=== PATIENT | male | born 1970 | race Caucasian/White ===

== ENCOUNTER 2022-01-11 15:02 | Emergency (ER) | payer SELFPAY ==
[2022-01-11 15:04] VITALS: BP 161/89; PULSE 105; RESP 18; TEMP 36.9; O2SAT 97; BMI 23.4
[2022-01-11] MEDS: MECLIZINE HCL 12.5 MG TABLET 50 MG PO (15:44)
[2022-01-11] MEDS: SODIUM CHLORIDE 0.9% 1,000 ML 1000 ML IV (15:45)
[2022-01-11 15:48] LABS: Add Manual Diff / Slide Review NO; Basophils Absolute Auto 0 /uL (0-100); Basophils Percent Auto 0.7 % (0-2); Eosinophils Absolute Auto 0 /uL (0-450); Eosinophils Percent Auto 0.2 % (2-4); Hematocrit 39.8 % (41-53); Hemoglobin 13.7 g/dL (13.5-17.5); Lymphocytes Absolute Auto 300 /uL (1100-4500); Lymphocytes Percent Auto 7.3 % (25-40); Mean Corpuscular HGB Conc 34.5 % (30-36); Mean Corpuscular Volume 98.4 fL (80-100); Monocytes Absolute Auto 300 /uL (0-900); Monocytes Percent Auto 7.1 % (3-14); Neutrophils Absolute Auto 4000 /uL (1500-7000); Neutrophils Percent Auto 84.7 % (50-75); Platelet Count 97 X10^3/uL (150-400); Red Blood Cell Count 4.04 X10^6/uL (4.5-5.9); White Blood Cell Count 4.7 X10^3/uL (4.5-11.0)
[2022-01-11 15:59] LABS: Alanine Aminotransferase 151 IU/L (<50); Albumin 3.7 g/dL (3.5-5.0); Albumin Globulin Ratio 1.2 (1.0-2.8); Alkaline Phosphatase 109 U/L (38-126); Aspartate Aminotransferase 263 IU/L (17-59); Bilirubin Total 0.6 mg/dL (0.2-1.3); Blood Urea Nitrogen 9 mg/dL (9-20); Calcium 7.1 mg/dL (8.4-10.2); Carbon Dioxide 20 mmol/L (22-32); Chloride 111 mmol/L (98-107); Creatine Kinase 92 U/L (55-170); Estimated Glomerular Filt Rate > 60 mL/min (>60); Glucose 102 mg/dL (70-100); HEMOLYSIS < 15 (0-50); Lipase 41 U/L (23-300); Magnesium 1.7 mg/dL (1.6-2.3); Potassium 3.2 mmol/L (3.4-5.1); Sodium 140 mmol/L (137-145); Total Protein 6.7 g/dL (6.3-8.2)
[2022-01-11 16:11] LABS: Troponin I < 0.012 ng/mL (0.01-0.034)
[2022-01-11 16:18] LABS: COVID19 -Nasal RAPID Negative (Negative)
--- NOTE | 2022-01-11 16:55 | ED_ITS ---
HPI - Dizziness <APPLE Lewis - Last Filed: 01/11/22 18:38> General Chief Complaint: Dizziness Stated Complaint: Vertigo Time Seen by Provider: 01/11/22 16:54 Source: patient and EMS Mode of arrival: EMS History of Present Illness HPI Narrative: This is a 51-year-old male presents to the emergency department complaining acute onset of dizziness this morning, nausea and vomiting associated with his dizziness, feeling poorly, and generalized bilateral ear pain associated with his seasonal allergies. Patient denies any fever, he states that he drinks 1-2 beers every other day, states that his stools have been firm, last bowel movement was last night, states he has had a cough for approximately 2 months, is COVID vaccinated x2, denies a history of any of the symptoms in the past. States that he had of fatty meal last night but otherwise has not had any significant changes. He denies any substance use, states he is a current everyday smoker, occasional marijuana user, states that he uses alcohol only a few times a week. He also endorses that he moved in with his parents, he has had a diet change recently, denies any abdominal surgeries, denies any abdominal pain, back pain, weakness, or any other symptom. He denies taking any vitamins. Related Data Previous Rx's Medication Instructions Recorded fluticasone furoate 27.5 1 spray INTRANASAL BID #5.9 ml 01/11/22 mcg/actuation nasal spray,suspension meclizine 50 mg tablet 50 mg PO DAILY PRN #20 tab 01/11/22 multivitamin 1 tab PO QAM #30 tab 01/11/22 ondansetron 4 mg disintegrating 4 mg PO Q8H #10 tab 01/11/22 tablet Allergies Allergy/AdvReac Type Severity Reaction Status Date / Time No Known Drug Allergies Allergy Verified 01/11/22 15:31 Review of Systems <APPLE Lewis - Last Filed: 01/11/22 18:38> Review of Systems Narrative: General: denies fever, chills, malaise, sweats, fatigue Head/Neck: denies headache, neck pain, dizziness Eyes: denies visual changes, eye pain Cardio: denies chest pain, palpitations, edema Respiratory: denies dyspnea, cough, orthopnea GI: denies abdominal pain, endorses nausea and vomiting today, denies any diarrhea : denies dysuria, hematuria, urinary retention, frequency or incontinence MSK: denies joint pain, muscle weakness Skin: denies rash, itching, skin lesions or other Neuro: denies numbness, tingling Patient History <APPLE Lewis - Last Filed: 01/11/22 18:38> Social History Smoking Status: Current every day smoker Smoking Status: Current every day smoker alcohol intake frequency: a few times a week Substance Use Type: marijuana Exam <APPLE Lewis - Last Filed: 01/11/22 18:38> Narrative Exam Narrative: Independently reviewed vitals signs and nursing notes. General: cooperative, comfortable, in no acute distress, well developed and well groomed, mild tremors visible in his fingertips, tongue fasciculations, Head: atraumatic, symmetrical facial expressions Neck: supple, atraumatic, without lymphadenopathy. Eyes: pupils equal round and reactive, EOMI, conjunctiva normal, non icterus sclera bilaterally Nose: nares patent, no rhinorrhea Mouth/Throat: uvula midline, moist mucus membranes Cardiovascular: regular rate and rhythm, no longer tachycardic, on my exam his heart rate was 93, no peripheral edema, warm extremities Respiratory: normal effort, able to speak in complete sentences, no audible wheezing, stridor, or rales. No retractions or tachypnea. GI: abdomen soft, nontender to palpation, nondistended, no masses, no exquisite tenderness with exam, without guarding or rebound. MSK: moves all extremities, ambulatory w/steady gait, neurovascularly intact, no weakness Skin: brisk capillary refill, no rash, no erythema Neuro: normal speech and cognition, A&O x3, normal tone Psych: mental status is grossly normal, congruent mood, normal affect, pleasant and cooperative Initial Vital Signs Initial Vital Signs: Vital Signs Temperature 98.4 F 01/11/22 15:04 Pulse Rate 105 H 01/11/22 15:04 Respiratory Rate 18 01/11/22 15:04 Blood Pressure 161/89 H 01/11/22 15:04 Pulse Oximetry 97 01/11/22 15:04 Course <APPLE Lewis - Last Filed: 01/11/22 18:38> Orders Ordered: ED Orders 01/11/22 15:39 Complete Blood Count AUTO DIFF Stat Comprehensive Metabolic Panel Stat Lipase Stat Magnesium Stat Troponin & CK Cardiac Panel Stat 01/11/22 15:50 COVID19 -Nasal RAPID/Pre-Proc Stat Discontinued Medications Sodium Chloride (Normal Saline 0.9%) 1,000 mls @ 1,000 mls/hr IV BOLUS ONE Stop: 01/11/22 16:34 Last Infusion: 01/11/22 16:59 Dose: 0 mls/hr Documented by: Admin: 01/11/22 15:45 Dose: 1,000 mls/hr Documented by: ALINE Meclizine HCl (Meclizine Hcl 12.5 Mg Tablet) 50 mg PO NOW ONE Stop: 01/11/22 15:36 Last Admin: 01/11/22 15:44 Dose: 50 mg Documented by: ALINE Ondansetron HCl (Ondansetron 4 Mg/2 Ml Inj) 4 mg IV NOW ONE Stop: 01/11/22 17:07 Last Admin: 01/11/22 17:22 Dose: 4 mg Documented by: GOMEZ Potassium Chloride (Potassium Chloride 20 Meq Tab) 40 meq PO NOW ONE Stop: 01/11/22 17:07 Last Admin: 01/11/22 17:22 Dose: 40 meq Documented by: GOMEZ Vital Signs Vital signs: Vital Signs - 8 hr 01/11/22 15:04 01/11/22 17:27 Temperature 98.4 F Pulse Rate 105 H 88 Respiratory Rate 18 16 Blood Pressure 161/89 H 158/78 H Pulse Oximetry 97 97 MDM - Dizziness <APPLE Lewis - Last Filed: 01/11/22 18:38> Lab Data Result diagrams: 01/11/22 15:39 01/11/22 15:39 Labs: Lab Results 01/11/22 01/11/22 01/11/22 Range/Units 15:39 15:39 15:50 WBC 4.7 (4.5-11.0) X10^3/uL RBC 4.04 L (4.5-5.9) X10^6/uL Hgb 13.7 (13.5-17.5) g/dL Hct 39.8 L (41-53) % MCV 98.4 (80-100) fL MCH 34.0 (26-34) PG MCHC 34.5 (30-36) % RDW 15.0 H (11.6-14.8) % Plt Count 97 L (150-400) X10^3/uL Neut % (Auto) 84.7 H (50-75) % Lymph % (Auto) 7.3 L (25-40) % [place] % (Auto) 7.1 (3-14) % Eos % (Auto) 0.2 L (2-4) % Baso % (Auto) 0.7 (0-2) % Neut # (Auto) 4000 (8066-8016) /uL Lymph # (Auto) 300 L (0733-6743) /uL [place] # (Auto) 300 (0-900) /uL Eos # (Auto) 0 (0-450) /uL Baso # (Auto) 0 (0-100) /uL Sodium 140 (137-145) mmol/L Potassium 3.2 L (3.4-5.1) mmol/L Chloride 111 H (98-107) mmol/L Carbon Dioxide 20 L (22-32) mmol/L BUN 9 (9-20) mg/dL Creatinine 0.50 L (0.66-1.25) mg/dL Estimated GFR > 60 (>60) mL/min BUN/Creatinine Ratio 18.0 (6-22) Glucose 102 H (70-100) mg/dL Calcium 7.1 L (8.4-10.2) mg/dL Magnesium 1.7 (1.6-2.3) mg/dL Total Bilirubin 0.6 (0.2-1.3) mg/dL AST 263 H (17-59) IU/L ALT 151 H (<50) IU/L Alkaline Phosphatase 109 (38-126) U/L Total Creatine Kinase 92 (55-170) U/L CK-MB (CK-2) TNP CK-MB (CK-2) Rel Index TNP Troponin I < 0.012 (0.01-0.034) ng/mL Total Protein 6.7 (6.3-8.2) g/dL Albumin 3.7 (3.5-5.0) g/dL Globulin 3.0 (1.7-4.1) g/dL Albumin/Globulin Ratio 1.2 (1.0-2.8) Lipase 41 (23-300) U/L SARS-CoV-2 (PCR) Negative (Negative) MDM Narrative Medical decision making narrative: This is a 51-year-old male presents to the emergency department by EMS complaining of nausea vomiting associated with dizziness that started this mor cindy. Patient received meclizine, 1 L of normal saline, Zofran in the emergency department states is feeling much better. Lab work does not show any leukocytosis, no anemia,, platelet count is 97, potassium is 3.2, platelet count of 97, no priors to compare this to. Liver enzymes are elevated, AST is 263, ALT is 151, alkaline phosphatase is 109, T bilirubin is 0.6, troponin is 0.012, COVID is negative. No prior lab work to compare to, I suspect that this patient drinks significantly more than what he told me 2, he has tremors on exam, hypokalemia could be to GI losses or poor p.o. intake. He was given 40 mEq of potassium in the emergency department, Zofran, 1 L of normal saline and tole rated these things well, he was feeling better afterwards. Encourage patient to follow-up with his primary doctor regarding his liver enzymes. He had a nontender abdomen to palpation, lipase is 41, does not have any signs or symptoms of infection. I suspect that patient's thrombocytopenia is due to his chronic alcohol use. Patient endorses dizziness with head movements, this is why he came to the emergency department. He endorsed ear fullness and seasonal allergies, patient has bilateral middle ear effusions, non suppurative, encouraged him to start using Flonase morning and night, Claritin or Zyrtec to help with his allergy symptoms, he was prescribed a multivitamin to start taking daily, Zofran for nausea vomiting, and encouraged him to follow-up closely with his primary doctor for vestibular physical therapy, follow-up for his elevated liver enzymes, and ongoing healthcare concerns. Patient is appropriate and amenable to discharge home. Vital signs are stable on repeat examination is unremarkable. Patient has been informed of results. Patient has been given strict return to ER precautions for any new or worsening symptoms. Patient understands to follow up closely with outpatient providers as instructed. Patient understands plan and agrees to discharge home. All questions and concerns answered at this time. Discharge Plan Departure Patient Disposition: Home Clinical Impression: Hypokalemia, Acute dehydration Benign paroxysmal positional vertigo Qualifiers: Laterality: bilateral Qualified Code(s): H81.13 - Benign paroxysmal vertigo, bilateral Instructions: Benign Paroxysmal Positional Vertigo Activity Restrictions/Additional Instructions: *You have been diagnosed with dizziness most likely related to a middle ear effusion likely called benign paroxysmal positional vertigo. Please try and stay hydrated with electrolyte containing fluids, avoid alcohol, use Zofran as necessary for vomiting and nausea. Please take the meclizine as needed for your dizziness symptom. Please take a multivitamin daily so that your potassium level does not get low again. Please follow-up with Dr. Peters about your elevated liver enzymes today, we did not have any priors to compare to and you did not have a tender abdomen on exam so I would like you to follow-up with him about why these are elevated. If you are drinking more than what you said you are, this could be the reason for that. It could also be why your potassium level is low. Please focus on nutrition, try to stay hydrated with things that are good for you, and please come back to the emergency department if you have any worsening of your symptoms. Ask Dr. Peters for a referral to vestibular physical therapy to help you with your BPPV. Please use Flonase morning and night, you may take Claritin in the morning or Zyrtec at night to help with the symptoms. Claritin or Zyrtec are both available [id number]. *What to do: *Please continue to take your regular medications as directed. [ x] New medication prescriptions sent to your pharmacy: [[facility] ] [ ] New medication written as a paper prescription [ ] No new medications given *Please follow up with your primary care provider in 2-3 days, call for an appointment. Let them know you were seen in the Emergency Department and that we asked that you be seen for follow-up. We will electronically transmit a record of today's note if your PCP is in our system *If you do not have a primary care provider please contact [phone] to establish care with one of the [facility] primary care providers. *Return to Emergency Department if you should have any new, worsening or concerning symptoms, such as [fever greater than 101F, chills, worsening pain, persistent vomiting or other bothersome symptoms] Prescriptions: New meclizine 50 mg tablet 50 mg PO DAILY PRN (Reason: dizziness) Qty: 20 0RF ondansetron 4 mg tablet,disintegrating 4 mg PO Q8H Qty: 10 0RF multivitamin Tablet 1 tab PO QAM Qty: 30 0RF fluticasone furoate 27.5 mcg/actuation spray,suspension 1 spray intranasal BID Qty: 5.9 0RF Rx Instructions: into each nostril
[2022-01-11] MEDS: ONDANSETRON 4 MG/2 ML INJ IV (17:22)
[2022-01-11] MEDS: POTASSIUM CHLORIDE 20 MEQ TAB 40 MEQ PO (17:22)
[2022-01-11 17:27] VITALS: BP 158/78; PULSE 88; RESP 16; O2SAT 97
== END 2022-01-11 17:27 | disposition home or self-care (01) ==
PROVIDERS: Emergency Medicine; Emergency Provider Nurse Practitioner Critical Care Medicine
DX: H81.13 Benign paroxysmal vertigo, bilateral (principal); E87.6 Hypokalemia; E86.0 Dehydration; R03.0 Elevated blood-pressure reading, without diagnosis of hypertension; Z20.822 Contact with and (suspected) exposure to COVID-19
CPT/HCPCS: 80053; 82550; 83690; 83735; 84484; 85025; 87635; 93005; 96361; 96374; 99284; C9803; J2405